=== PATIENT | female | born 1955 | race Caucasian/White ===

== ENCOUNTER → 2017-10-11 09:12 | Outpatient (CLI) | payer MEDICARE, OTHER, SELFPAY ==
[2017-10-11 09:50] LABS: Basophils # 0.1 K/mm3 (0-0.2); Basophils % 0.8 % (0.1-2.0); Eosinophils # 0.2 K/mm3 (0.0-0.4); Eosinophils % 4.4 % (0.1-12.0); Hematocrit 40.9 % (37.0-47.0); Hemoglobin 13.5 g/dL (12.2-16.2); Lymphocytes # 2.1 K/mm3 (0.7-4.5); Lymphocytes % 37.3 K/mm3 (10-50); Mean Corpuscular HGB Conc 33.1 g/dL (31.8-35.4); Mean Corpuscular Hemoglobin 27.9 pg (27.0-31.2); Mean Corpuscular Volume 84.4 fl (81-99); Mean Platelet Volume 6.9 fl (7.4-10.4); Monocytes # 0.3 K/mm3 (0.1-1.0); Neutrophils # 2.9 K/mm3 (1.8-7.8); Neutrophils % 52.4 % (37.0-80.0); Platelet Count 252 K/mm3 (142-424); Red Blood Count 4.84 M/mm3 (4.20-5.40); Red Cell Distribution Width 13.7 % (11.5-17.5); White Blood Count 5.6 K/mm3 (4.8-10.8)
[2017-10-11 10:28] LABS: Hemoglobin A1C 5.6 % (0.0-7.0)
[2017-10-11 11:53] LABS: Alanine Aminotransferase 15 U/L (12-78); Albumin Level 3.8 gm/dL (3.4-5.0); Albumin/Globulin Ratio 1.2 (1.1-1.8); Alkaline Phosphatase 123 U/L (46-116); Anion Gap 17.4 mEq/L (5-15); Aspartate Amino Transferase 12 U/L (15-37); Bilirubin,Total 0.3 mg/dL (0.2-1.0); Blood Urea Nitrogen 20 mg/dL (7-18); Calcium 9.5 mg/dL (8.5-10.1); Carbon Dioxide 25 mmol/L (21.0-32.0); Chloride 106 mmol/L (98-107); Creatinine,Serum 0.99 mg/dL (0.55-1.02); Estimated Glomerular Filt Rate 57 ml/min (>60); Free T4 (Free Thyroxine) 1.21 ng/dl (0.76-1.46); GFR (African American) 69 ML/MIN (>60); Globulin 3.3 gm/dl (1.3-3.2); Glucose 111 mg/dL (74-106); Potassium 4.4 mmoL/L (3.5-5.1); Sodium 144 mmol/L (136-145); Thyroid Stimulating Hormone 0.12 uIU/ml (0.358-3.740); Total Protein,Serum 7.1 gm/dL (6.4-8.2)
[2017-10-14 17:11] LABS: Vitamin B12 426 pg/mL (232-1245)
== END ==
PROVIDERS: PCP Internal Medicine Adolescent Medicine; Referring Provider Clinical Nurse Specialist Adult Health; Visit Provider Nurse Practitioner Family
DX: C73 Malignant neoplasm of thyroid gland (principal); Z79.899 Other long term (current) drug therapy
CPT/HCPCS: 36415; 80053; 82607; 83036; 84439; 84443; 85025

== ENCOUNTER → 2018-04-13 09:33 | Outpatient (CLI) | payer MEDICARE, OTHER, SELFPAY ==
[2018-04-13 10:44] LABS: Basophils # 0.1 K/mm3 (0-0.2); Basophils % 0.9 % (0.1-2.0); Eosinophils # 0.3 K/mm3 (0.0-0.4); Eosinophils % 5.5 % (0.1-12.0); Hematocrit 43.2 % (37.0-47.0); Hemoglobin 13.2 g/dL (12.2-16.2); Lymphocytes # 1.8 K/mm3 (0.7-4.5); Lymphocytes % 35.1 K/mm3 (10-50); Mean Corpuscular HGB Conc 30.6 g/dL (31.8-35.4); Mean Corpuscular Hemoglobin 27.4 pg (27.0-31.2); Mean Corpuscular Volume 89.4 fl (81-99); Mean Platelet Volume 7.2 fl (7.4-10.4); Monocytes # 0.3 K/mm3 (0.1-1.0); Monocytes % 5.4 % (1.7-9.3); Neutrophils # 2.7 K/mm3 (1.8-7.8); Neutrophils % 53.2 % (37.0-80.0); Platelet Count 254 K/mm3 (142-424); Red Blood Count 4.83 M/mm3 (4.20-5.40); Red Cell Distribution Width 14.2 % (11.5-17.5); White Blood Count 5.1 K/mm3 (4.8-10.8)
[2018-04-13 11:02] LABS: Alanine Aminotransferase 16 U/L (12-78); Albumin Level 3.7 gm/dL (3.4-5.0); Albumin/Globulin Ratio 1.1 (1.1-1.8); Alkaline Phosphatase 127 U/L (46-116); Anion Gap 12.5 mEq/L (5-15); Aspartate Amino Transferase 21 U/L (15-37); Bilirubin,Total 0.3 mg/dL (0.2-1.0); Blood Urea Nitrogen 15 mg/dL (7-18); Calcium 9.4 mg/dL (8.5-10.1); Carbon Dioxide 29 mmol/L (21.0-32.0); Chloride 109 mmol/L (98-107); Chol/HDL Ratio 3.3 (1-3.5); Cholesterol 194 mg/dL (140-200); Creatinine,Serum 0.94 mg/dL (0.55-1.02); Estimated Glomerular Filt Rate 60 ml/min (>60); Free T4 (Free Thyroxine) 1.21 ng/dl (0.76-1.46); GFR (African American) 73 ML/MIN (>60); Globulin 3.3 gm/dl (1.3-3.2); Glucose 118 mg/dL (74-106); HDL Cholesterol 58 mg/dL (29-89); LDL Cholesterol 107 mg/dL (0-130); Potassium 4.5 mmoL/L (3.5-5.1); Sodium 146 mmol/L (136-145); Thyroid Stimulating Hormone 0.08 uIU/ml (0.358-3.740); Triglycerides 146 mg/dL (30-200); VLDL Cholesterol 29 mg/dL (0-40)
[2018-04-13 16:51] LABS: Hemoglobin A1C 5.7 % (0.0-7.0)
[2018-04-14 17:59] LABS: Vitamin B12 402 pg/mL (232-1245)
== END ==
PROVIDERS: Visit Provider Nurse Practitioner Family
DX: E53.8 Deficiency of other specified B group vitamins (principal); I10 Essential (primary) hypertension; E03.9 Hypothyroidism, unspecified; E78.5 Hyperlipidemia, unspecified; R73.9 Hyperglycemia, unspecified
CPT/HCPCS: 36415; 80053; 80061; 82607; 83036; 84439; 84443; 85025

== ENCOUNTER → 2018-09-15 13:34 | Outpatient (CLI) | payer MEDICARE, OTHER, SELFPAY ==
[2018-09-15 14:06] LABS: Basophils # 0.1 K/mm3 (0-0.2); Basophils % 0.7 % (0.1-2.0); Eosinophils # 0.2 K/mm3 (0.0-0.4); Eosinophils % 3.1 % (0.1-12.0); Hemoglobin 13.3 g/dL (12.2-16.2); Lymphocytes # 2.2 K/mm3 (0.7-4.5); Lymphocytes % 33.1 % (10-50); Mean Corpuscular Hemoglobin 27.7 pg (27.0-31.2); Mean Corpuscular Volume 89.6 fl (81-99); Mean Platelet Volume 6.8 fl (7.4-10.4); Monocytes # 0.3 K/mm3 (0.1-1.0); Monocytes % 4.6 % (1.7-9.3); Neutrophils % 58.4 % (37.0-80.0); Platelet Count 277 K/mm3 (142-424); Red Cell Distribution Width 14.6 % (11.5-17.5); White Blood Count 6.8 K/mm3 (4.8-10.8)
[2018-09-15 17:04] LABS: Alanine Aminotransferase 16 U/L (12-78); Albumin Level 3.9 gm/dL (3.4-5.0); Albumin/Globulin Ratio 1.1 (1.1-1.8); Alkaline Phosphatase 125 U/L (46-116); Anion Gap 14.3 mEq/L (5-15); Aspartate Amino Transferase 17 U/L (15-37); Bilirubin,Total 0.3 mg/dL (0.2-1.0); Blood Urea Nitrogen 12 mg/dL (7-18); Calcium 9.3 mg/dL (8.5-10.1); Carbon Dioxide 27 mmol/L (21.0-32.0); Chloride 104 mmol/L (98-107); Creatinine,Serum 0.96 mg/dL (0.55-1.02); Estimated Glomerular Filt Rate 59 ml/min (>60); Free Thyroxine Index 4.1 ug/dL (5.93-13.13); GFR (African American) 71 ML/MIN (>60); Globulin 3.5 gm/dl (1.3-3.2); Glucose 94 mg/dL (74-106); Potassium 4.3 mmoL/L (3.5-5.1); Sodium 141 mmol/L (136-145); T4 (Thyroxine) 12.1 ug/dl (4.7-13.3); Thyroid Stimulating Hormone 0.15 uIU/ml (0.358-3.740); Total Protein,Serum 7.4 gm/dL (6.4-8.2); Triiodothryronine (T3) Uptake 34 % (31-39)
== END ==
PROVIDERS: Visit Provider Nurse Practitioner Family
DX: R06.02 Shortness of breath (principal); R06.2 Wheezing; R20.2 Paresthesia of skin; I65.23 Occlusion and stenosis of bilateral carotid arteries; M54.2 Cervicalgia
CPT/HCPCS: 36415; 80053; 84436; 84443; 84479; 85025

== ENCOUNTER → 2019-02-23 15:20 | Outpatient (CLI) | payer MEDICARE, OTHER, SELFPAY ==
--- NOTE | 2019-02-23 15:28 | XR_ITS ---
XR chest 2V HISTORY: ITS.REASON: COUGH,FEVER/CHILLS,RECURRENT PNEUMONIA States she has pneumonia 3 times this year. Nonsmoker. ORDERING PHYSICIAN: Jessica Love APRN PATIENT AGE: 63 years Technique: PA and lateral chest COMPARISON: PA and lateral chest 01/07/2018 & 04/12/2017 FINDINGS: Today's Lateral view does show a focal area of minimal infiltrate and atelectasis involving the RML (less likely lingula since the left heart border is not obscured on frontal projection)... The right lower lobe appears stable and clear. The upper lung cooper are clear. .. Moderate size hiatal hernia is again noted. It measures up to nearly 9 cm transverse. Slightly more evident and larger on today's study than previous CXR studies. No pleural effusion. No pneumothorax. The hilar regions are upper normal prominence bilaterally actually appears slightly more generous in 2017 and 2018 studies.-This this will warrant and require follow-up 2 view chest in 2-[address] chest if respiratory symptoms persist or or other clinical findings No pleural effusion no pneumothorax. Chest wall and T-spine unremarkable. IMPRESSION............... 1. Minimal right middle lobe infiltrate 2. Hilar regions are slightly more generous on today CXR. This may merely be due to technique but I would encourage a follow-up 2 view chest within the next 2-3 months to further evaluate 3. Hiatal hernia is slightly larger and more evident today. 9 cm transverse .
== END ==
PROVIDERS: PCP Nurse Practitioner Family; Visit Provider Nurse Practitioner Family
DX: R05 Cough (principal); R50.9 Fever, unspecified; K44.9 Diaphragmatic hernia without obstruction or gangrene; J18.9 Pneumonia, unspecified organism
CPT/HCPCS: 71046; 87070; 87205

== ENCOUNTER → 2019-03-15 13:30 | Outpatient (CLI) | payer MEDICARE, OTHER, SELFPAY ==
--- NOTE | 2019-03-15 13:39 | XR_ITS ---
XR chest 2V HISTORY: ITS.REASON: PNEUMONIA ORDERING PHYSICIAN: Jessica Love APRN PATIENT AGE: 63 years COMPARISON: 02/23/2019 FINDINGS: The cardiomediastinal silhouette and pulmonary vascularity are within normal limits. Hiatal hernia is once again noted. No lobar consolidation or collapse. The jade do not appear significant changed. The lungs are clear bilaterally. No acute bony findings. IMPRESSION: No change with no acute finding. Hiatal hernia.
== END ==
PROVIDERS: PCP Internal Medicine Adolescent Medicine; Visit Provider Nurse Practitioner Family
DX: J18.1 Lobar pneumonia, unspecified organism (principal)
CPT/HCPCS: 71046

== ENCOUNTER → 2019-08-24 09:38 | Outpatient (CLI) | payer MEDICARE, OTHER, SELFPAY ==
[2019-08-24 09:59] LABS: Basophils # 0.1 K/mm3 (0-0.2); Eosinophils # 0.2 K/mm3 (0.0-0.4); Eosinophils % 3.6 % (0.1-12.0); Hematocrit 36.9 % (37.0-47.0); Hemoglobin 11.3 g/dL (12.2-16.2); Lymphocytes # 1.9 K/mm3 (0.7-4.5); Lymphocytes % 32.9 % (10-50); Mean Corpuscular HGB Conc 30.6 g/dL (31.8-35.4); Mean Corpuscular Hemoglobin 24.6 pg (27.0-31.2); Mean Corpuscular Volume 80.4 fl (81-99); Mean Platelet Volume 7.7 fl (7.4-10.4); Monocytes # 0.3 K/mm3 (0.1-1.0); Monocytes % 4.7 % (1.7-9.3); Neutrophils # 3.4 K/mm3 (1.8-7.8); Neutrophils % 57.9 % (37.0-80.0); Platelet Count 289 K/mm3 (142-424); Red Blood Count 4.59 M/mm3 (4.20-5.40); Red Cell Distribution Width 18.5 % (11.5-17.5); White Blood Count 5.8 K/mm3 (4.8-10.8)
[2019-08-24 11:10] LABS: Alanine Aminotransferase 12 U/L (12-78); Albumin Level 3.4 gm/dL (3.4-5.0); Alkaline Phosphatase 154 U/L (46-116); Anion Gap 12.5 mEq/L (5-15); Aspartate Amino Transferase 21 U/L (15-37); Bilirubin,Total 0.2 mg/dL (0.2-1.0); Blood Urea Nitrogen 18 mg/dL (7-18); Calcium 8.9 mg/dL (8.5-10.1); Carbon Dioxide 26 mmol/L (21.0-32.0); Chloride 106 mmol/L (98-107); Cholesterol 1 mg/dL (140-200); Creatinine,Serum 1.05 mg/dL (0.55-1.02); Estimated Glomerular Filt Rate 53 ml/min (>60); Free T4 (Free Thyroxine) 0.92 ng/dl (0.76-1.46); GFR (African American) 64 ML/MIN (>60); Globulin 3.4 gm/dl (1.3-3.2); Glucose 114 mg/dL (74-106); HDL Cholesterol 53 mg/dL (29-89); LDL Cholesterol -79 mg/dL (0-130); Potassium 4.5 mmoL/L (3.5-5.1); Sodium 140 mmol/L (136-145); Thyroid Stimulating Hormone 4.39 uIU/ml (0.358-3.740); Total Protein,Serum 6.8 gm/dL (6.4-8.2); Triglycerides 133 mg/dL (30-200); VLDL Cholesterol 27 mg/dL (0-40)
[2019-08-27 06:37] LABS: Vitamin B12 381 pg/mL (232-1245); Vitamin D 25 Hydroxy 16.9 ng/mL (30.0-100.0)
== END ==
PROVIDERS: Visit Provider Nurse Practitioner Family
DX: E03.9 Hypothyroidism, unspecified (principal); E78.5 Hyperlipidemia, unspecified; E53.8 Deficiency of other specified B group vitamins; E55.9 Vitamin D deficiency, unspecified; I10 Essential (primary) hypertension
CPT/HCPCS: 36415; 80053; 80061; 82607; 82652; 84439; 84443; 85025

== ENCOUNTER → 2019-11-26 15:56 | Outpatient (CLI) | payer MEDICARE, OTHER, SELFPAY ==
--- NOTE | 2019-11-26 | MM_ITS ---
PROCEDURE: MM DIG SCREENING MAMM BI W/CAD BILATERAL DIGITAL BREAST TOMOSYNTHESIS included Patient Age:64Y CLINICAL INDICATION: ROUTINE SCREEN 64-year-old but no hormonal right previous needle biopsy and aspiration left breast;. No new complaints.. Family history paternal aunt and sister with breast cancer COMPARISON: DMSB DIGITAL MAMM-SCREEN BILATERAL from 12/16/2011 DMDXUAVL DIG MAMM-DX UNI ADD VIEWS-LT from 12/24/2011 DMSB DIGITAL MAMM-SCREEN BILATERAL from 02/05/2013 DMSB DIG MAMM-SCREEN DARLEEN from 03/11/2014 DMSB DIG MAMM-SCREEN DARLEEN from 03/14/2015 DMSB DIG MAMM-SCREEN DARLEEN from 03/24/2016 TECHNIQUE: Standard CC and MLO images were obtained. R2 CAD reviewed. Bilateral digital breast tomosynthesis included fall the the FINDINGS: Moderate breast density with scattered fibroglandular elements throughout both breast most evident towards upper-outer quadrant. No new dominant or suspicious mass, no suspicious calcifications. Stable mild asymmetry Left breast: No new findings of significant concern. Tiny elongated area of nodularity deep left breast seen on CC tomosynthesis, is stable since 2014 likely benign intramammary node Right breast: No new areas of concern IMPRESSION: stable bilateral mammogram. No new areas of significant concern. Bilateral follow-up 1 year recommended. Moderately dense breast. BI-RAD Category: 2 Benign Finding(s) FOLLOW-UP: 1YR 1 Year Follow-up (A letter has been sent to the patient regarding results of the study.) Dictated by: Willard Wylie MD 12/03/2019 12:25 Electronically signed by Willard Wylie MD in [place] 12/03/2019 12:25
== END ==
PROVIDERS: PCP Internal Medicine Adolescent Medicine; Visit Provider Nurse Practitioner Family
DX: Z12.31 Encounter for screening mammogram for malignant neoplasm of breast (principal)
CPT/HCPCS: 77063; 77067

== ENCOUNTER → 2020-03-17 09:09 | Outpatient (CLI) | payer MEDICARE, OTHER, SELFPAY ==
[2020-03-17 10:17] LABS: Basophils # 0.1 K/mm3 (0-0.2); Basophils % 0.9 % (0.1-2.0); Eosinophils # 0.3 K/mm3 (0.0-0.4); Eosinophils % 4.6 % (0.1-12.0); Hematocrit 40.3 % (37.0-47.0); Hemoglobin 13.2 g/dL (12.2-16.2); Lymphocytes # 2.2 K/mm3 (0.7-4.5); Lymphocytes % 36.8 % (10-50); Mean Corpuscular HGB Conc 32.6 g/dL (31.8-35.4); Mean Corpuscular Hemoglobin 28.8 pg (27.0-31.2); Mean Corpuscular Volume 88.2 fl (81-99); Mean Platelet Volume 7.2 fl (7.4-10.4); Monocytes # 0.3 K/mm3 (0.1-1.0); Monocytes % 4.4 % (1.7-9.3); Neutrophils # 3.1 K/mm3 (1.8-7.8); Neutrophils % 53.2 % (37.0-80.0); Platelet Count 257 K/mm3 (142-424); Red Blood Count 4.57 M/mm3 (4.20-5.40); Red Cell Distribution Width 15.6 % (11.5-17.5); White Blood Count 5.8 K/mm3 (4.8-10.8)
[2020-03-17 10:53] LABS: Alanine Aminotransferase 8 U/L (12-78); Albumin Level 4.5 g/dl (3.5-5.0); Albumin/Globulin Ratio 1.6 (1.1-1.8); Alkaline Phosphatase 149 U/L (38-126); Anion Gap 14.4 mEq/L (5-15); Aspartate Amino Transferase 30 U/L (14-36); Bilirubin,Total 0.3 mg/dl (0.2-1.3); Blood Urea Nitrogen 16 mg/dl (7-17); Calcium 9.9 mg/dl (8.4-10.2); Carbon Dioxide 28 mmol/L (22.0-30.0); Chloride 103 mmol/L (98-107); Chol/HDL Ratio 3.2 (1-3.5); Cholesterol 202 mg/dl (140-200); Estimated Glomerular Filt Rate 50 ml/min (>60); GFR (African American) 60 ML/MIN (>60); Globulin 2.9 g/dL (1.3-3.2); Glucose 125 mg/dl (74-100); HDL Cholesterol 63 mg/dl (40-60); Potassium 4.4 mmoL/L (3.5-5.1); Sodium 141 mmol/L (136-145); Total Protein,Serum 7.4 g/dl (6.3-8.2); Triglycerides 189 mg/dl (30-150); VLDL Cholesterol 38 mg/dL (0-40)
[2020-03-17 11:04] LABS: Direct LDL Cholesterol 102.11 mg/dL (100-129)
[2020-03-17 11:09] LABS: 25-OH Vitamin D, Total 31.9 ng/mL (30-100)
[2020-03-17 11:10] LABS: Free T4 (Free Thyroxine) 1.19 ng/dl (0.78-2.19)
[2020-03-17 11:24] LABS: Thyroid Stimulating Hormone 5.58 uIU/mL (0.465-4.68)
[2020-03-18 10:37] LABS: Vitamin B12 308 pg/mL (232-1245)
== END ==
PROVIDERS: Visit Provider Nurse Practitioner Family
DX: E03.9 Hypothyroidism, unspecified (principal); E55.9 Vitamin D deficiency, unspecified; E78.5 Hyperlipidemia, unspecified; I10 Essential (primary) hypertension
CPT/HCPCS: 36415; 80053; 80061; 82306; 82607; 84439; 84443; 85025

== ENCOUNTER → 2020-03-25 09:41 | Outpatient (CLI) | payer MEDICARE, OTHER, SELFPAY ==
--- NOTE | 2020-03-25 09:46 | FL_ITS ---
PROCEDURE: FL UPPER GI SERIES W/O AIR CLINICAL INDICATION: HITAL HERNIA,GERD status post Ramesh fundoplication COMPARISON: No exams were available for comparison TECHNIQUE: Standard barium swallow and upper GI double contrast technique was performed FLUOROSCOPY TIME: 2.31 minutes FINDINGS: There is a nonobstructive circumferential narrowing of the distal thoracic esophagus from a Ramesh fundoplication. There are no mucosal abnormalities of the esophagus, stomach, duodenum and C-loop. 4 centimeter diverticulum in the 3rd portion duodenum is noted. There is intermittent spasm of the distal thoracic esophagus just above the fundoplication which did impede propulsion of the barium bolus into the gastric lumen. Mild tertiary esophageal contractions are demonstrated of the lower 3rd of the esophagus. No reflux was demonstrated IMPRESSION: Status post Ramesh fundoplication with a mild presbyesophagus and intermittent spasm of the distal thoracic esophagus, duodenal diverticulum Dictated by: Gigi Gooden 03/25/2020 11:57 Electronically signed by Gigi Gooden in [place] 03/25/2020 11:57
== END ==
PROVIDERS: PCP Internal Medicine Adolescent Medicine; Visit Provider Nurse Practitioner Family
DX: K21.9 Gastro-esophageal reflux disease without esophagitis (principal); K44.9 Diaphragmatic hernia without obstruction or gangrene
CPT/HCPCS: 74240

== ENCOUNTER → 2020-09-13 12:52 | Outpatient (CLI) | payer MEDICARE, OTHER, SELFPAY | PROVIDERS: Visit Provider Nurse Practitioner Family | DX: R10.30 Lower abdominal pain, unspecified (principal) | CPT/HCPCS: 87086 ==

== ENCOUNTER → 2020-10-10 08:22 | Outpatient (CLI) | payer MEDICARE, OTHER, SELFPAY ==
[2020-10-10 09:22] LABS: Basophils # 0.1 K/mm3 (0-0.2); Basophils % 1.1 % (0.1-2.0); Eosinophils # 0.3 K/mm3 (0.0-0.4); Eosinophils % 3.3 % (0.1-12.0); Hematocrit 42.7 % (37.0-47.0); Hemoglobin 14.1 g/dL (12.2-16.2); Lymphocytes % 38.3 % (10-50); Mean Corpuscular HGB Conc 32.9 g/dL (31.8-35.4); Mean Platelet Volume 6.8 fl (7.4-10.4); Monocytes # 0.3 K/mm3 (0.1-1.0); Neutrophils # 4.1 K/mm3 (1.8-7.8); Neutrophils % 53.4 % (37.0-80.0); Platelet Count 267 K/mm3 (142-424); Red Blood Count 5.03 M/mm3 (4.20-5.40); Red Cell Distribution Width 15.5 % (11.5-17.5); White Blood Count 7.8 K/mm3 (4.8-10.8)
[2020-10-10 10:01] LABS: Alanine Aminotransferase 11 U/L (12-78); Albumin Level 4.4 g/dl (3.5-5.0); Albumin/Globulin Ratio 1.5 (1.1-1.8); Alkaline Phosphatase 155 U/L (38-126); Anion Gap 14.5 mEq/L (5-15); Aspartate Amino Transferase 27 U/L (14-36); Bilirubin,Total 0.5 mg/dl (0.2-1.3); Blood Urea Nitrogen 14 mg/dl (7-17); Carbon Dioxide 26 mmol/L (22.0-30.0); Chloride 103 mmol/L (98-107); Chol/HDL Ratio 3.7 (1-3.5); Cholesterol 198 mg/dl (140-200); Estimated Glomerular Filt Rate 55 ml/min (>60); GFR (African American) 67 ML/MIN (>60); Glucose 120 mg/dl (74-100); HDL Cholesterol 53 mg/dl (40-60); Potassium 4.5 mmoL/L (3.5-5.1); Sodium 139 mmol/L (136-145); Total Protein,Serum 7.4 g/dl (6.3-8.2); Triglycerides 284 mg/dl (30-150); VLDL Cholesterol 57 mg/dL (0-40)
[2020-10-10 10:12] LABS: Direct LDL Cholesterol 87.36 mg/dL (100-129)
[2020-10-10 10:18] LABS: 25-OH Vitamin D, Total 23.7 ng/mL (30-100)
[2020-10-10 10:33] LABS: Thyroid Stimulating Hormone 4.05 uIU/mL (0.465-4.68)
[2020-10-10 10:51] LABS: Vitamin B12 309 pg/mL (239-931)
== END ==
PROVIDERS: Visit Provider Nurse Practitioner Family
DX: I10 Essential (primary) hypertension (principal); E03.9 Hypothyroidism, unspecified; E53.8 Deficiency of other specified B group vitamins; E55.9 Vitamin D deficiency, unspecified
CPT/HCPCS: 36415; 80053; 80061; 82306; 82607; 84439; 84443; 85025

== ENCOUNTER → 2021-08-31 08:59 | Outpatient (CLI) | payer MEDICARE, OTHER, SELFPAY ==
[2021-08-31 09:26] LABS: Basophils # 0.1 K/mm3 (0-0.2); Basophils % 1.1 % (0.1-2.0); Eosinophils # 0.2 K/mm3 (0.0-0.4); Eosinophils % 3.7 % (0.1-12.0); Hematocrit 41.6 % (37.0-47.0); Hemoglobin 14.2 g/dL (12.2-16.2); Lymphocytes # 2.3 K/mm3 (0.7-4.5); Lymphocytes % 38.7 % (10-50); Mean Corpuscular HGB Conc 34.1 g/dL (31.8-35.4); Mean Corpuscular Hemoglobin 28.9 pg (27.0-31.2); Mean Corpuscular Volume 84.8 fl (81-99); Mean Platelet Volume 7.5 fl (7.4-10.4); Monocytes # 0.3 K/mm3 (0.1-1.0); Monocytes % 4.5 % (1.7-9.3); Neutrophils # 3.1 K/mm3 (1.8-7.8); Platelet Count 295 K/mm3 (142-424); Red Cell Distribution Width 14.4 % (11.5-17.5)
[2021-08-31 10:15] LABS: Alanine Aminotransferase 4 U/L (12-78); Albumin Level 4.2 g/dl (3.5-5.0); Albumin/Globulin Ratio 1.6 (1.1-1.8); Alkaline Phosphatase 124 U/L (38-126); Anion Gap 9.3 mEq/L (5-15); Aspartate Amino Transferase 29 U/L (14-36); Bilirubin,Total 0.4 mg/dl (0.2-1.3); Blood Urea Nitrogen 13 mg/dl (7-17); Calcium 9.5 mg/dl (8.4-10.2); Carbon Dioxide 30 mmol/L (22.0-30.0); Chloride 106 mmol/L (98-107); Chol/HDL Ratio 3.3 (1-3.5); Cholesterol 176 mg/dl (140-200); Estimated Glomerular Filt Rate 72 ml/min (>60); GFR (African American) 87 ML/MIN (>60); Globulin 2.7 g/dL (1.3-3.2); Glucose 111 mg/dl (74-100); HDL Cholesterol 54 mg/dl (40-60); Potassium 4.3 mmoL/L (3.5-5.1); Sodium 141 mmol/L (136-145); Total Protein,Serum 6.9 g/dl (6.3-8.2); Triglycerides 178 mg/dl (30-150); VLDL Cholesterol 36 mg/dL (0-40)
[2021-08-31 10:25] LABS: Direct LDL Cholesterol 86.08 mg/dL (100-129)
[2021-08-31 10:31] LABS: 25-OH Vitamin D, Total 29.9 ng/mL (30-100)
[2021-08-31 10:32] LABS: Free T4 (Free Thyroxine) 1.81 ng/dl (0.78-2.19)
[2021-08-31 11:52] LABS: Thyroid Stimulating Hormone < 0.02 uIU/mL (0.465-4.68)
[2021-08-31 16:20] LABS: Vitamin B12 309 pg/mL (239-931)
== END ==
PROVIDERS: Visit Provider Nurse Practitioner Family
DX: I10 Essential (primary) hypertension (principal); E03.9 Hypothyroidism, unspecified; E78.5 Hyperlipidemia, unspecified; E53.8 Deficiency of other specified B group vitamins; E55.9 Vitamin D deficiency, unspecified
CPT/HCPCS: 36415; 80053; 80061; 82306; 82607; 84439; 84443; 85025

== ENCOUNTER 2022-08-06 18:53 | Emergency (ER) | payer MEDICARE, OTHER, SELFPAY ==
[2022-08-06 19:34] VITALS: BP 150/76; PULSE 84; RESP 18; TEMP 36.9; O2SAT 97; BMI 33.5
--- NOTE | 2022-08-06 19:42 | EXP.UTC ---
Discharge Plan Disposition Patient Disposition: Home, Self-Care Condition: Good Prescriptions Prescriptions: No Action levothyroxine 200 mcg capsule 200 mcg PO DAILY albuterol sulfate 90 mcg/actuation aerosol powdr breath activated 2 inh INHALATION Q6H PRN fluoxetine 40 MG capsule 40 mg PO DAILY Label Comments: aspirin 81 MG tablet,delayed release (DR/EC) 81 mg PO DAILY losartan 25 MG tablet 25 mg PO DAILY Label Comments: montelukast 10 MG tablet 10 mg PO DAILY Label Comments: Referrals Follow up/Referrals: Jessica oLve APRN [Primary Care Provider] - See instructions Activity Restrictions/Add. Instructions Additional Instructions/Restrictions: Take Losartan tonight Followup with Michelle Tuesday for labs, etc Return to ER if you have chest pain, vertigo, etc Clinical Impressions Clinical Impression: Hypertension Discharge ED Provider: Laura Fernandez [facility] HPI General Stated complaint: elevated bp Mode of Arrival: Ambulatory Source of Information: Patient Limitations: No Limitations Time Seen by Provider: 08/06/22 19:42 Description of Symptoms (Recalled from Triage Doc. by RN): pt comes in with c/o high blood pressure. pt states she was on a bp medication but went without it for 3 weeks. she experienced headache for 2 weeks. pt states she got said blood pressure medication back. HEENT Symptoms (Recalled from RN notes): Yes Resp Symptoms (Recalled from RN notes): No Skin Symptoms (Recalled from RN notes): No MS Symptoms (Recalled from RN notes): No Functional Status (Recalled from RN notes): n/a History of Present Illness Provider Complaint: Patient states she has had elevated blood pressure for the past few weeks. She had an issue getting her blood pressure medicine switched to a new pharmacy. She had a pounding headache this am. Was finally able to get Losartan 25 mg daily filled this am. Blood pressure has gone down, but is still high. Head still feels a little woozy . Checked BP at home and machine told her her heart was irregular, so that concerned her. Did have COVID19 almost 2 weeks ago. Onset (ago): day(s) (1) Severity scale (1-10): 5 Quality: aching Consistency: constant Associated symptoms: headaches Treatments prior to arrival: other (Losartan 25) Related Data Home Medications Medication Instructions Recorded Confirmed aspirin 81 mg tablet,delayed 81 mg PO DAILY Blood thinner 01/07/18 11/06/20 release fluoxetine 40 mg capsule 40 mg PO DAILY Depression 01/07/18 11/06/20 losartan 25 mg tablet 25 mg PO DAILY HTN 01/07/18 11/06/20 montelukast 10 mg tablet 10 mg PO DAILY Asthma 01/07/18 11/06/20 albuterol sulfate 90 mcg/actuation 2 inh inhalation Q6H PRN 11/06/20 11/06/20 breath activated powder inhaler levothyroxine 200 mcg capsule 200 mcg PO DAILY 11/06/20 11/06/20 Allergies Allergy/AdvReac Type Severity Reaction Status Date / Time adhesive tape Allergy Intermediate BLISTERS,IT Verified 08/06/22 19:40 AMANDA meperidine Allergy Intermediate S-DIFF. Verified 08/06/22 19:40 BREATHING Penicillins Allergy Intermediate S-DIFF. Verified 08/06/22 19:40 BREATHING promethazine Allergy Intermediate S-DIFF. Verified 08/06/22 19:40 BREATHING Sulfa (Sulfonamide Allergy Intermediate I-HIVES Verified 08/06/22 19:40 Antibiotics) Worker's Comp Is this a Worker's Comp case?: No PFSH PFSH Social History Smoking Status: Never smoker alcohol intake: never substance use type: denies use current occupational status: employed Travel in the last 8 weeks: None ROS Obtained: Yes All systems reviewed & no additional complaints except as documented Constitutional Constitutional: Reports headache(s) ENT Ears, Nose, Mouth, and Throat: Reports headache(s) Neurologic Neurologic: Reports headache(s) Physical Exam General General appea
[2022-08-06 20:30] LABS: POC Glucose,Bedside 159 (70-110)
[2022-08-06 20:38] VITALS: BP 142/82; PULSE 84; RESP 18; TEMP 36.9
== END 2022-08-06 20:38 | disposition home or self-care (01) ==
PROVIDERS: Emergency Provider Physician Assistant; PCP Nurse Practitioner Family
DX: I10 Essential (primary) hypertension (principal); G44.89 Other headache syndrome; Z91.128 Patient's intentional underdosing of medication regimen for other reason; R73.9 Hyperglycemia, unspecified; Z86.16 Personal history of COVID-19; Z88.0 Allergy status to penicillin; Z88.2 Allergy status to sulfonamides; Z88.8 Allergy status to other drugs, medicaments and biological substances; Z91.048 Other nonmedicinal substance allergy status
CPT/HCPCS: 82962; 99212; G0463

== ENCOUNTER → 2022-08-23 07:47 | Outpatient (CLI) | payer MEDICARE, OTHER, SELFPAY ==
--- NOTE | 2022-08-23 07:50 | FL_ITS ---
FINAL REPORT CLINICAL HISTORY: GERD,ESOPHAGITIS FINDINGS: UPPER GI SERIES, single contrast HISTORY: GERD, esophagitis, status post Ramesh 2 years ago. PROCEDURE: Patient ingested thick and thin barium contrast. Spot and overhead films were performed. A total of 50 images were saved. FINDINGS: There is an unusual appearance of the distal esophagus with contrast filling posteriorly. This is favored to represent part of the postoperative change. There is mild esophageal dysmotility. The stomach is of normal size, shape and position. There is extensive debris in the stomach, despite the patient stating that she has been nothing by mouth. Correlate for gastroparesis or gastric outlet obstruction. The liquid contrast did readily empty from the stomach.The duodenal bulb is unremarkable. There is a moderate sized duodenal diverticulum identified in the second portion of the duodenum. No episodes of gastroesophageal reflux observed. 13 mm barium tablet passes easily through the esophagus and into the stomach. Fluoroscopy time: 2 minutes 13 seconds. IMPRESSION: Unusual appearance of the distal esophagus with contrast filling posteriorly. This is favored to represent a portion of the postoperative change. No gastroesophageal reflux demonstrated. Esophageal dysmotility. Extensive debris within the stomach, despite the patient stating that she was nothing by mouth. Correlate for gastroparesis or gastric outlet obstruction. Duodenal diverticulum. Reviewed, Interpreted and Dictated by Joseph Conn III, MD Transcribed by Lydia Ortega PA-C Authenticated and [facility]
== END ==
PROVIDERS: PCP Nurse Practitioner Family; Visit Provider Nurse Practitioner Family
DX: K21.9 Gastro-esophageal reflux disease without esophagitis (principal)
CPT/HCPCS: 74246

== ENCOUNTER 2022-12-12 09:20 | Emergency (ER) | payer MEDICARE, OTHER, SELFPAY ==
[2022-12-12 09:25] VITALS: BP 117/85; PULSE 94; RESP 20; TEMP 36.8; O2SAT 97; BMI 34.9
--- NOTE | 2022-12-12 09:33 | XR_ITS ---
PROCEDURE INFORMATION: Exam: XR Chest Exam date and time: 12/12/2022 9:32 AM Age: 67 years old Clinical indication: Cough; Additional info: Congestion TECHNIQUE: Imaging protocol: Radiologic exam of the chest. Views: 2 views. COMPARISON: CR XR CHEST 2V 06/22/2022 11:01 AM FINDINGS: Lungs: Small focus of airspace consolidation is present in the mid right lung. Peribronchial thickening and reticulonodular opacities are present in the right lower lobe. No lung nodules. Pleural spaces: No pleural effusion. No pneumothorax. Heart/Mediastinum: No abnormalities. No cardiomegaly. No pulmonary vascular congestion. Bones/joints: No fractures or bone lesions. IMPRESSION: Multifocal right lung pneumonia. Chest x-ray follow-up is recommended within 8 weeks to document resolution.
--- NOTE | 2022-12-12 09:34 | EXP.UTC ---
Discharge Plan Disposition Patient Disposition: Home, Self-Care Condition: Good Prescriptions Prescriptions: New prednisone 10 mg tablet 10 mg PO DIRECTED 9 Days Qty: 21 0RF Rx Instructions: Take 4 tablets daily for 3 days, then take 2 tablets daily for 3 days, then take 1 tablet daily for 3 days, then stop. benzonatate [benzonatate] 100 mg capsule 100 mg PO TIDP PRN (Reason: Cough) Qty: 30 0RF levofloxacin [levofloxacin] 500 mg tablet 500 mg PO DAILY Qty: 7 0RF guaifenesin [Mucinex] 600 mg tablet extended release 12hr 600 - 1,200 mg PO BIDP PRN (Reason: Congestion) Qty: 30 0RF No Action levothyroxine 200 mcg capsule 200 mcg PO DAILY albuterol sulfate 90 mcg/actuation aerosol powdr breath activated 2 inh INHALATION Q6H PRN (Reason: asthma) fluoxetine 40 MG capsule 40 mg PO DAILY Label Comments: aspirin 81 MG tablet,delayed release (DR/EC) 81 mg PO DAILY losartan 25 MG tablet 25 mg PO DAILY Label Comments: montelukast 10 MG tablet 10 mg PO DAILY Label Comments: Referrals Follow up/Referrals: Omar Thomas MD [Primary Care Provider] - See instructions Activity Restrictions/Add. Instructions Additional Instructions/Restrictions: Drink plenty of fluids. Take tylenol or ibuprofen for pain or fever. Take the medications as directed. Follow up with your regular doctor. GO TO THE ER FOR ANY WORSENING SYMPTOMS Clinical Impressions Clinical Impression: RLL pneumonia Instructions Patient Instructions: Pneumonia-Adult Discharge ED Provider: Clarence Vanessa [facility] HPI General Stated complaint: cough, fever, congestion, sore throat Time Seen by Provider: 12/12/22 09:22 History of Present Illness Provider Complaint: She states that for the past 1 week she has had worsening fatigue, chest congestion. Yesterday she started running a fever up to 102 Related Data Home Medications Medication Instructions Recorded Confirmed aspirin 81 mg tablet,delayed 81 mg PO DAILY Blood thinner 01/07/18 11/06/20 release fluoxetine 40 mg capsule 40 mg PO DAILY Depression 01/07/18 12/12/22 losartan 25 mg tablet 25 mg PO DAILY HTN 01/07/18 12/12/22 montelukast 10 mg tablet 10 mg PO DAILY Asthma 01/07/18 12/12/22 albuterol sulfate 90 mcg/actuation 2 inh inhalation Q6H PRN asthma 11/06/20 12/12/22 breath activated powder inhaler levothyroxine 200 mcg capsule 200 mcg PO DAILY thyroid 11/06/20 12/12/22 Previous Rx's Medication Instructions Recorded benzonatate 100 mg capsule 100 mg PO TIDP PRN Cough #30 caps 12/12/22 guaifenesin 600 mg tablet, 600 - 1,200 mg PO BIDP PRN 12/12/22 extended release 12 hr (Mucinex) Congestion #30 tabs levofloxacin 500 mg tablet 500 mg PO DAILY #7 tabs 12/12/22 prednisone 10 mg tablet 10 mg PO DIRECTED 9 days #21 12/12/22 tabs Allergies Allergy/AdvReac Type Severity Reaction Status Date / Time adhesive tape Allergy Intermediate BLISTERS,IT Verified 12/12/22 09:42 AMANDA meperidine Allergy Intermediate S-DIFF. Verified 12/12/22 09:42 BREATHING Penicillins Allergy Intermediate S-DIFF. Verified 12/12/22 09:42 BREATHING promethazine Allergy Intermediate S-DIFF. Verified 12/12/22 09:42 BREATHING Sulfa (Sulfonamide Allergy Intermediate I-HIVES Verified 12/12/22 09:42 Antibiotics) [facility] Disclaimer: The information contained in this section may have been updated after the patient was seen, as this information can be updated by other users. Social History Smoking Status: Never smoker alcohol intake: never substance use type: denies use current occupational status: employed Travel in the last 8 weeks: None ROS Obtained: Yes All systems reviewed & no additional complaints except as documented Constitutional Constitutional: Reports chills and Reports fever(s) Eyes Eyes: Denies eye disch
[2022-12-12 10:26] VITALS: BP 117/85; PULSE 94; RESP 20; TEMP 36.8; O2SAT 97
== END 2022-12-12 10:25 | disposition home or self-care (01) ==
PROVIDERS: Emergency Provider Nurse Practitioner Family; PCP Internal Medicine Adolescent Medicine
DX: J18.1 Lobar pneumonia, unspecified organism (principal); I10 Essential (primary) hypertension
CPT/HCPCS: 71046; 96372; 99212; 99214; G0463

== ENCOUNTER → 2022-12-24 09:17 | Outpatient (CLI) | payer MEDICARE, OTHER, SELFPAY ==
--- NOTE | 2022-12-24 09:25 | XR_ITS ---
FINAL REPORT CLINICAL HISTORY: F/U PNEUMONIA COMPARISON: 12/12/2022 FINDINGS: TWO-VIEW CHEST The heart size is normal. The mediastinum is normal. The lungs are clear. There is no pneumothorax. IMPRESSION: No acute cardiopulmonary process. Reviewed, Interpreted and Dictated by Perfecto Glover MD Transcribed by Marisa Lovett Authenticated and [facility]
== END ==
PROVIDERS: PCP Nurse Practitioner Family; Visit Provider Nurse Practitioner Family
DX: J18.9 Pneumonia, unspecified organism (principal)
CPT/HCPCS: 71046

== ENCOUNTER → 2023-02-21 17:54 | Outpatient (CLI) | payer MEDICARE, OTHER, SELFPAY ==
--- NOTE | 2023-02-21 18:33 | XR_ITS ---
PROCEDURE INFORMATION: Exam: XR Chest Exam date and time: 02/21/2023 6:26 PM Age: 67 years old Clinical indication: Fever; Prior surgery; Surgery date: 1-6 months; Surgery type: Hiatel hernia repair. ; Additional info: History of aspiration pneumonia, acute febrile illness TECHNIQUE: Imaging protocol: Radiologic exam of the chest. Views: 2 views. COMPARISON: CR XR CHEST 2V 12/24/2022 9:53 AM FINDINGS: Lungs: Unremarkable. No consolidation. Pleural spaces: Unremarkable. No pleural effusion. No pneumothorax. Heart/Mediastinum: Unremarkable. No cardiomegaly. Bones/joints: Unremarkable. IMPRESSION: No acute findings.
== END ==
PROVIDERS: PCP Nurse Practitioner Family; Visit Provider Nurse Practitioner Family
DX: R50.9 Fever, unspecified (principal); Z87.01 Personal history of pneumonia (recurrent)
CPT/HCPCS: 71046

== ENCOUNTER → 2023-09-05 07:55 | Outpatient (CLI) | payer MEDICARE, OTHER, SELFPAY ==
--- NOTE | 2023-09-05 08:01 | XR_ITS ---
FINAL REPORT CLINICAL HISTORY: Postmenopausal osteoporosis screening COMPARISON: None FINDINGS: Using L1-4, the bone mineral density of the spine is 1.050 g/cm2, corresponding to T-score of 0.0, within normal limits. Using the left hip, the bone mineral density of the femoral neck is 0.864 g/cm2, corresponding to a T-score of 0.1, within normal limits. Using the right hip, the bone mineral density of the femoral neck is 0.904 g/cm2, corresponding to a T-score of 0.5, within normal limits. FRAX not reported because all T-scores at or above -1.0. NOTE: T-score: Standard deviation compared with peak bone mass of young adult mean. *Following the recommendations of the International Society of Bone densitometry, classification of hip BMD is based on the lower of two T-scores; total hip or femoral neck. IMPRESSION: Normal bone mineral density of the lumbar spine and hips. Reviewed, Interpreted and Dictated by Joseph Conn III, MD Transcribed by Shannon Duque Authenticated and . [facility]
--- NOTE | 2023-09-05 08:01 | MM_ITS ---
PROCEDURE INFORMATION: Exam: MG Bilateral Screening 3D Mammography Exam date and time: 09/05/2023 7:52 AM Age: 67 years old Clinical indication: Screening mammogram TECHNIQUE: Imaging protocol: Bilateral Screening tomosynthesis and 2D mammography including computer-aided detection (CAD) when performed. COMPARISON: 1. MG MM DIG SCREENING MAMM BI W/CAD 11/26/2019 4:05 PM 2. MG DMSB DIG MAMM-SCREEN DARLEEN 03/24/2016 8:37 AM 3. MG DMSB DIG MAMM-SCREEN DARLEEN 03/14/2015 1:49 PM 4. MG DMSB DIG MAMM-SCREEN DARLEEN 03/11/2014 2:32 PM FINDINGS: MAMMOGRAPHY: Breast composition: The breast is heterogeneously dense, which may obscure small masses. Mass: None. Architectural distortion: No new or suspicious architectural distortion. Calcifications: No new or suspicious calcifications are present Asymmetric density: No new or suspicious asymmetric density is present Skin thickening: None. Axillary adenopathy: None. IMPRESSION: No mammographic evidence of malignancy. Recommend annual screening mammography unless otherwise clinically indicated. ASSESSMENT: BI-RADS category 1: Negative
== END ==
PROVIDERS: PCP Nurse Practitioner Family; Visit Provider Nurse Practitioner Family
DX: Z12.31 Encounter for screening mammogram for malignant neoplasm of breast; Z78.0 Asymptomatic menopausal state
CPT/HCPCS: 77063; 77067; 77080

== ENCOUNTER 2024-07-10 07:53 | Day surgery (SDC) | payer MEDICARE, OTHER, SELFPAY ==
[2024-07-06 14:09] VITALS: BMI 32.5
[2024-07-10] MEDS: CYCLOPENTOLATE 2% OPHTH SOLN 2ML BOTTLE OP ×3 (08:10→08:20)
[2024-07-10] MEDS: PHENYLEPHRINE 2.5% OPHTH SOLN 2ML OP ×3 (08:10→08:20)
[2024-07-10] MEDS: TETRACAINE 0.5% OPTH SOL 15ML OP ×3 (08:10→08:20)
[2024-07-10 08:16] VITALS: BP 144/94; PULSE 94; RESP 18; TEMP 36.6; O2SAT 96; BMI 32.5
[2024-07-10 09:38] VITALS: BP 166/88; PULSE 72; RESP 18; O2SAT 98
[2024-07-10] MEDS: SODIUM CHLORIDE 0.9% 10ML FLUSH SYRINGE 10 ML IV (09:38)
[2024-07-10] MEDS: MIDAZOLAM 2MG/2ML VIAL 1 MG IV (09:38)
[2024-07-10 09:43] VITALS: BP 154/91; PULSE 73; RESP 18; O2SAT 97
[2024-07-10] MEDS: TIMOLOL 0.5% OPTH SOLN 5ML OP (09:44)
[2024-07-10] MEDS: LIDOCAINE 1% PF 2ML AMPULE 2 ML IJ (09:45)
[2024-07-10] MEDS: TOBRAMYCIN/DEX OPTH SUSP 2.5ML OP (09:45)
[2024-07-10 09:47] VITALS: BP 159/89; PULSE 72; RESP 18; O2SAT 94
[2024-07-10 09:54] VITALS: BP 139/93; PULSE 90; RESP 18; TEMP 36.7; O2SAT 98
--- NOTE | 2024-07-10 11:08 | HMH.PROCNOTE ---
[facility] Procedure Note Date: 07/10/24 Time: 11:08 Procedure Note:: Preoperative Diagnosis: Cataract combined NS Cortical Complex [Left] Eye Postop diagnosis: same Operation: Microscopic phacoemulsification with intraocular lens implant [Left] Eye Specimen: None Blood Loss: None The patient was examined in the office with a complaint of poor vision in the [left] eye. The patient reports that this interferes with ADLs such as reading, watching TV and/or driving or the vision is like looking through a foggy haze and is very troubling. The patient was examined and found to have a visually significant cataract with best corrected vision of [20/400] by refraction and/or glare testing. Treatment options, risks and benefits were explained and the patient elected to have cataract surgery in an attempt to improve their vision. The patient had the eye anesthetized with topical tetracaine, the eye ways prepped and draped in the usual fashion for cataract surgery. A paracentesis and a temporal keratotomy were made. 0.2cc of 1% lidocaine PF was placed into the anterior chamber. And aqueous/viscoelastic exchange was done and a 360 degree capsulorexis was performed. Through hydrodissection and delineation with BSS on a cannula was done. The lens nucleus was phecoemulsified with CDE of [5.77]. Residual cortical material was removed using automated I&A The capsular bag was deepened with viscoelastica and a PCIOL was placed in the capsular bag with good centration and stability. Residual viscoelastic was removed using automated I&A. The keratotomy incision was hydrated with BSS on a cannula. The wound were checked and found to be water tight. IOP was checked digitally and adjusted as needed so as not to be too high. 1 drop of timolol 0.5%, ofloxacin, prednisolone acetate and ketorolac was instilled and eye shield taped over the eye. The patient was taken to recovery in good condition and will be seen postoperatively.
== END 2024-07-10 10:03 | disposition home or self-care (01) ==
LOC: OR 07:54
PROVIDERS: PCP Internal Medicine Adolescent Medicine; Visit Provider Ophthalmology
PROC: (CPT 66984; principal; 2024-07-10 10:30)
DX: H25.812 Combined forms of age-related cataract, left eye (principal)
CPT/HCPCS: 66984; J2250; V2632

== ENCOUNTER 2024-07-30 12:19 | Outpatient (CLI) | payer MEDICARE, OTHER, SELFPAY ==
--- NOTE | 2024-07-30 12:24 | MM_ITS ---
PROCEDURE INFORMATION: Exam: MG Bilateral Screening 3D Mammography Exam date and time: 07/30/2024 12:59 PM Age: 68 years old Clinical indication: Screening exam. TECHNIQUE: Imaging protocol: Bilateral Screening tomosynthesis and 2D mammography including computer-aided detection (CAD) when performed. COMPARISON: 1. MG MM DIG SCREENING MAMM BI W/CAD 09/05/2023 7:52 AM 2. MG MM DIG SCREENING MAMM BI W/CAD 11/26/2019 4:05 PM FINDINGS: MAMMOGRAPHY: Breast composition: The breasts are heterogeneously dense, which may obscure small masses. Mass: No suspicious masses. Architectural distortion: None. Calcifications: No suspicious calcifications. Asymmetric density: None. Skin thickening: None. Axillary adenopathy: None. IMPRESSION: No mammographic evidence of malignancy. Annual screening is recommended unless otherwise clinically indicated. ASSESSMENT: BI-RADS Category 1: Negative.
== END 2024-07-30 23:59 | disposition home or self-care (01) ==
LOC: RAD 12:20
PROVIDERS: PCP Nurse Practitioner Family; Visit Provider Nurse Practitioner Family
DX: Z12.31 Encounter for screening mammogram for malignant neoplasm of breast (principal)
CPT/HCPCS: 77061; 77063; 77065; 77067; G0279